=== PATIENT | male | born 1995 | race African-American/Black ===

== ENCOUNTER 2021-02-22 19:16 | Emergency (ER) | payer SELFPAY ==
[~2021-02-22] VITALS: Ht 185.4 cm; Wt 93.0 kg
[2021-02-22 19:31] VITALS: BP 126/76
[2021-02-22] MEDS ORDERED: diphenhydrAMINE HCL 25 MG CAPSULE PO ONE (19:45)
[2021-02-22] MEDS ORDERED: IBUPROFEN 600 MG TABLET. PO ONE (19:45)
[2021-02-22] MEDS ORDERED: ACETAMINOPHEN 500 MG TABLET PO ONE (19:45)
--- NOTE | 2021-02-22 19:51 | PHYS DOC ---
Past History Past Surgical History: No Surgical History Alcohol Use: None Adult General Chief Complaint Chief Complaint: CONGESTION HPI HPI Patient is a otherwise healthy 25-year-old male who presents with 2 days of sinus congestion, cough and fever. States he went to his primary care physician yesterday and was tested for the flu and Covid and was supposed to get his resul ts tomorrow. States he had not taken any medications. Denies any recent traumas, travels, chest pain, shortness of breath, abdominal pain, nausea, vomiting, diarrhea. States he is eating and drinking normally for him. States he is making urine and stool normally for him. Review of Systems Review of Systems Review of systems otherwise unremarkable except noted in HPI Allergies Allergies Allergies Coded Allergies Type Severity Reaction Last Updated Verified No Known Drug Allergies 02/22/21 No Physical Exam Physical Exam Constitutional: Well developed, well nourished, no acute distress, non-toxic appearance. [] HENT: Normocephalic, atraumatic, bilateral tympanic membranes normal, oropharynx moist, no oral exudates, nose normal. [] Eyes: conjunctiva normal, no discharge. [] Neck: Normal range of motion, no tenderness, supple, no stridor, no lymphadenopathy. [] Cardiovascular:Heart rate regular rhythm, no murmur [] Lungs & Thorax: Mild bilateral congestion and rhonchi with no tachypnea or hypoxia Abdomen: soft, no tenderness, no masses, no pulsatile masses. [] Skin: Warm, dry, no erythema, no rash. [] Extremities: No tenderness, no edema. [] Neurologic: Alert and oriented X 3, no focal deficits noted. [] Psychologic: Affect normal, judgement normal, mood normal. [] Current Patient Data Vital Signs Vital Signs Date Time Temp Pulse Resp B/P (MAP) Pulse Ox O2 Delivery O2 Flow Rate FiO2 02/22/21 19:31 102.0 99 16 126/76 (93) 96 Room Air EKG EKG [] Radiology/Procedures Radiology/Procedures [] Heart Score C/O Chest Pain: No Risk Factors: Risk Factors: DM, Current or recent (<one month) smoker, HTN, HLP, family history of CAD, obesity. Risk Scores: Risk Factors: DM, Current or recent (<one month) smoker, HTN, HLP, family history of CAD, obesity. Course & Med Decision Making Course & Med Decision Making Patient is a 25-year-old male who presents with 2 days of cough, and nasal congestion with fever Vital signs notable for fever. Physical exam noted above. Covid and flu swab pending from PCP yesterday. Given Tylenol, ibuprofen and diphenhydramine as well as cough medicine. [] Dragon Disclaimer Dragon Disclaimer This electronic medical record was generated, in whole or in part, using a voice recognition dictation system. Departure Departure: Impression: Primary Impression: Pneumonia Additional Impression: Viral syndrome Disposition: HOME / SELF CARE / HOMELESS Condition: GOOD Referrals: PCP,NO (PCP) JENY MORGAN MD Patient Instructions: Pneumonia, Adult, Viral Syndrome Additional Instructions: Thank you for coming into the emergency department today and allowing us to take care of you. Please read the attached information carefully to go back over some of the things we discussed. Please begin a Tylenol, ibuprofen, Benadryl and Mucinex regimen daily as we discussed as needed for your symptoms. Please take your antibiotics as prescribed and until gone. Please follow-up on your Covid and flu swabs tomorrow and maintain quarantine as needed. Please update your primary care physician and your ED visit. Please be sure to drink plenty of fluids and eat at least 3 nutritious meals a day and take a multivitamin daily. Please come back with new or concerning symptoms as we discussed. Scripts Levofloxacin (LEVOFLOXACIN) 500 Mg Tablet 1 TAB PO DAILY for PNA for 6 Days, #6 TAB Prov: SANTIAGO CONTRERAS MD 02/22/21 Problem Qualifiers SANTIAGO CONTRERAS MD Feb 22, 2021 19:51
[2021-02-22] MEDS ORDERED: guaiFENesin/CODEINE 100mg/10mg 5 ML LIQUID PO PRN (20:00)
[2021-02-22] MEDS ORDERED: LEVO500T9 PO (20:04)
[2021-02-22] MEDS ORDERED: levoFLOXacin 500 MG TABLET PO ONE (20:15)
--- NOTE | 2021-02-22 20:34 | RAD ---
XR CHEST 1V 02/22/2021 7:51 PM INDICATION: Cough, fever COMPARISON: None available TECHNIQUE: Portable frontal view of the chest is provided. FINDINGS: The cardiomediastinal silhouette is within normal limits. Patchy opacities identified in the right up per lobe and to a lesser extent bilateral lower lobes. There are no significant pleural effusions. There is no pulmonary vascular congestion. No pneumothora x. No suspicious osseous abnormality. IMPRESSION: Multifocal opacities in the right upper lobe with reticular interstitial changes in the lower lobes f avor multifocal pneumonia of infectious/inflammatory etiology. Correlate with any recent COVID exposu re. Electronically signed by: Bisi Plata MD (02/22/2021 8:31 PM) [facility]
== END 2021-02-22 20:13 | disposition home or self-care (01) ==
LOC: ER 19:16
DX: J18.9 Pneumonia, unspecified organism (principal); B34.9 Viral infection, unspecified
CPT/HCPCS: 71045; 99284; Q0163